=== PATIENT | female | born 1990 | race Caucasian/White ===

== ENCOUNTER 2018-05-25 15:50 | Emergency (ER) | payer OTHER ==
[~2018-05-25] VITALS: Ht 175.3 cm; Wt 70.3 kg
[2018-05-25 16:04] VITALS: BP 117/86
--- NOTE | 2018-05-25 16:24 | Emergency Room Report ---
History of Present Illness General Chief Complaint: Skin Rash/Abscess Source: Patient Present Illness HPI 27-year-old female presents to the emergency department complaining of itchy progressive rash times one week. Patient denies history of allergies. Denies pain. Pt. denies fevers, chills or swollen tender lymph nodes. Denies lesions/ rashes elsewhere on the body. Denies new medications or body washes or creams. Denies swelling of the lips, tongue , throat or airway. Denies wheezing, or shortness of breath. Denies recent travel, recent illness or ill contacts. denies blisters, oral lesions, or sloughing of the skin. 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 Allergies: Coded Allergies: SULFA (SULFONAMIDE ANTIBIOTICS) (Verified Allergy, Unknown, 05/25/18) Patient History Past Medical History: see triage record Past Surgical History: none Pertinent Family History: none Now: No Immunizations: UTD Reviewed Nursing Documentation: PMH: Agreed; PSxH: Agreed Nursing Documentation-PMH Past Medical History: No Stated History Review of Systems All Other Systems: negative except mentioned in HPI Physical Exam Vital Signs Date Time Temp Pulse Resp B/P (MAP) Pulse Ox O2 Delivery O2 Flow Rate FiO2 05/25/18 15:54 98.1 80 12 117/86 97 Room Air Sp02 EP Interpretation: reviewed, normal General Appearance: no apparent distress, alert, GCS 15, non-toxic Head: normocephalic, atraumatic, other - Rash on chin and anterior chest. Eyes: bilateral eye normal inspection, bilateral eye PERRL ENT: hearing grossly normal, no angioedema, normal voice, other - no oral lesions Neck: full range of motion, other - no stridor Respiratory: chest non-tender, lungs clear, normal breath sounds, no respiratory distress, no wheezing, speaking full sentences Cardiovascular #1: regular rate, rhythm Gastrointestinal: non tender, soft, other - Rash on trunk, small plaques, no blisters or vesicles. no specific pattern. Rectal: deferred Genitourinary: normal inspection Musculoskeletal: back normal, gait/station normal, normal range of motion, non- tender Neurologic: alert, oriented x3, responsive, motor strength/tone normal, sensory intact, speech normal, grossly normal Psychiatric: judgement/insight normal Skin: normal color, warm/dry, well hydrated, rash - Rash on trunk, small plaques, no blisters or vesicles. no specific pattern. Lymphatic: no adenopathy Medical Decision Making PA Attestation Dr. Rodrigez is my supervising Physician whom patient management has been discussed with. Diagnostic Impression: Primary Impression: Rash and other nonspecific skin eruption ER Course 27-year-old female presents to the emergency department complaining of itchy progressive rash times one week. Patient denies history of allergies. Denies pain. Pt. denies fevers, chills or swollen tender lymph nodes. Denies lesions/ rashes elsewhere on the body. Denies new medications or body washes or creams. Denies swelling of the lips, tongue , throat or airway. Denies wheezing, or shortness of breath. Denies recent travel, recent illness or ill contacts. denies blisters, oral lesions, or sloughing of the skin. 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 Ddx considered but are not limited to cellulitis, scabies, shingles, varicella, dermatitis, urticaria, eczema, tinea, viral exanthem, SJS Vital signs: are WNL, pt. is afebrile H&PE are most consistent with Urticaria. no evidence of blisters or oral lesions to suggest drug reaction like SJS. no evidence to suggest impending airway compromise or anaphylaxis. ORDERS: none required at this time, the diagnosis is clinical ED INTERVENTIONS: -Prednisone PO DISCHARGE: At this time pt. is stable for d/c to home. Will provide printed patient care instructions, and any necessary prescriptions. Care plan and follow up instructions have been discussed with the patient prior to discharge. Last Vital Signs Date Time Temp Pulse Resp B/P (MAP) Pulse Ox O2 Delivery O2 Flow Rate FiO2 05/25/18 15:54 98.1 80 12 117/86 97 Room Air Disposition: HOME, SELF-CARE Condition: Stable Scripts Prednisone* (PREDNISONE*) 20 Mg Tablet 40 MG ORAL DAILY for 5 Days, #10 TAB Prov: Dorinda Funez 05/25/18 Hydroxyzine HCl (Hydroxyzine HCl) 25 Mg Tablet 25 MG ORAL FOUR TIMES A DAY, #24 TAB Prov: Dorinda Funez 05/25/18 Departure Forms: Return to Work Return to Work Date: May 29, 2018 Work Restrictions: None Return to Full Activity: May 29, 2018 Patient Instructions: Hives, [id number], Rash Additional Instructions: Take medications as directed. Follow up with a Primary Care Provider in 3-5 days, even if your symptoms have resolved. --Please review list of primary care clinics, if you do not already have a primary care provider Return sooner to ED if new symptoms occur, or current symptoms become worse. Do not drink alcohol, drive, or operate heavy machinery while taking Hydroxyzine / Atarax as this may cause drowsiness. - Please note that this Emergency Department Report was dictated using [employer] inspector technology software, occasionally this can lead to erroneous entry secondary to interpretation by the dictation equipment. Dorinda Funez May 25, 2018 16:24
[2018-05-25] MEDS ORDERED: ATARAX25 MG ORAL (16:26)
[2018-05-25] MEDS ORDERED: PREDNISONE20 MG ORAL (16:26)
[2018-05-25 16:37] VITALS: BP 117/86
== END 2018-05-25 16:37 | disposition home or self-care (01) ==
LOC: EMR 16:20
DX: R21 Rash and other nonspecific skin eruption (principal); Z88.2 Allergy status to sulfonamides; Z87.891 Personal history of nicotine dependence
CPT/HCPCS: 99283; J7512

== ENCOUNTER 2018-09-08 15:16 | Emergency (ER) | payer OTHER ==
[~2018-09-08] VITALS: Ht 175.3 cm; Wt 72.1 kg
[~2018-09-08 15:16] MED LIST: ATARAX25 MG ORAL; PREDNISONE20 MG ORAL
--- NOTE | 2018-09-08 15:30 | NUR ---
ED Nurse Note: Pt has been having abdominal pain x3 days and blood in urine x2 times. Pt has hx of kidney stones and suspecting that she is experiencing the same symptom. Pain 8/10 romain. Aox4, VSS romain. Will cont to monitor.
--- NOTE | 2018-09-08 16:02 | Emergency Room Report ---
History of Present Illness General Chief Complaint: Abdominal Pain Source: Patient Present Illness HPI This is a 27-year-old female with a history of kidney stones, complains of 2 days of hematuria. She also complains of lower suprapubic pain. No radiation. She denies any nausea or vomiting. She denies any dysuria. No exacerbating or alleviating factor. States it feels like her kidney stones in the past before. Allergies: Coded Allergies: SULFA (SULFONAMIDE ANTIBIOTICS) (Verified Allergy, Unknown, 05/25/18) Patient History Past Medical History: other - Kidney stones Past Surgical History: none Pertinent Family History: none Last Menstrual Period: 08/2018 Now: No Nursing Documentation-PMH Past Medical History: No History, Except For Review of Systems All Other Systems: negative except mentioned in HPI Physical Exam Vital Signs Date Time Temp Pulse Resp B/P (MAP) Pulse Ox O2 Delivery O2 Flow Rate FiO2 09/08/18 15:27 98.4 94 18 107/73 97 Room Air General Appearance: well appearing, no apparent distress Head: normocephalic, atraumatic ENT: hearing grossly normal, normal voice Neck: full range of motion, supple Respiratory: no respiratory distress, speaking full sentences Gastrointestinal: normal inspection, normal bowel sounds, soft Genitourinary: no CVA tenderness, bladder normal, no vertebral tenderness Neurologic: alert, normal gait Psychiatric: mood/affect normal Medical Decision Making Reaction to Intervention: Improved Diagnostic Impression: Primary Impression: Urinary tract infection ER Course Patient presents significant complexity of risk requiring multiple bedside evaluations. Particularly very concerned about acute pyelonephritis, sepsis, obstructive uropathy, renal failure, pelvic inflammatory disease, urolithiasis. Blood work was reviewed. She was given an emergent dose of IV Rocephin. Ultrasound was reviewed as well. She does have a nonobstructing right kidney stone. There is no hydronephrosis. The patient is alert and nontoxic- appearing. Her pain is controlled with nonnarcotic medications. She will be discharged home with antibiotics and pain medication to follow-up with her primary care physician as an outpatient. Laboratory Tests Test 09/08/18 15:33 09/08/18 16:26 Urine Color Yellow Urine Appearance Slightly cloudy Urine pH 7 (4.5-8.0) Urine Specific Sims 1.010 (1.005-1.035) Urine Protein 2+ (NEGATIVE) H Urine Glucose (UA) Negative (NEGATIVE) Urine Ketones 1+ (NEGATIVE) H Urine Blood 1+ (NEGATIVE) H Urine Nitrite Negative (NEGATIVE) Urine Bilirubin Negative (NEGATIVE) Urine Urobilinogen Normal MG/DL (0.0-1.0) Urine Leukocyte Esterase 2+ (NEGATIVE) H Urine RBC 5-10 /HPF (0 - 2) H Urine WBC 40-60 /HPF (0 - 2) H Urine Squamous Epithelial Cells Moderate /LPF (NONE/OCC) H Urine Bacteria Moderate /HPF (NONE) H Urine Mucus Few /LPF (NONE/OCC) H White Blood Count 6.4 K/UL (4.8-10.8) Red Blood Count 4.24 M/UL (4.20-5.40) Hemoglobin 11.7 G/DL (12.0-16.0) L Hematocrit 36.2 % (37.0-47.0) L Mean Corpuscular Volume 85 FL (80-99) Mean Corpuscular Hemoglobin 27.5 PG (27.0-31.0) Mean Corpuscular Hemoglobin Concent 32.2 G/DL (32.0-36.0) Red Cell Distribution Width 12.3 % (11.6-14.8) Platelet Count 250 K/UL (150-450) Mean Platelet Volume 7.4 FL (6.5-10.1) Neutrophils (%) (Auto) 63.9 % (45.0-75.0) Lymphocytes (%) (Auto) 28.1 % (20.0-45.0) Monocytes (%) (Auto) 6.0 % (1.0-10.0) Eosinophils (%) (Auto) 0.7 % (0.0-3.0) Basophils (%) (Auto) 1.3 % (0.0-2.0) Sodium Level 139 MMOL/L (136-145) Potassium Level 4.3 MMOL/L (3.5-5.1) Chloride Level 105 MMOL/L (98-107) Carbon Dioxide Level 24 MMOL/L (21-32) Anion Gap 10 mmol/L (5-15) Blood Urea Nitrogen 17 mg/dL (7-18) Creatinine 1.1 MG/DL (0.55-1.30) Estimate Glomerular Filtration Rate 59.1 mL/min (>60) Glucose Level 88 MG/DL (74-106) Calcium Level 9.8 MG/DL (8.5-10.1) Human Chorionic Gonadotropin, Quant < 1 mIU/mL (1-6) L Last Vital Signs Date Time Temp Pulse Resp B/P (MAP) Pulse Ox O2 Delivery O2 Flow Rate FiO2 09/08/18 15:31 94 18 Room Air 09/08/18 15:27 98.4 107/73 97 Status: improved Disposition: HOME, SELF-CARE Scripts Ciprofloxacin Hcl* (CIPROFLOXACIN HCL*) 500 Mg Tablet 500 MG ORAL Q12H, #14 TAB 0 Refills Prov: ZURI RAY 09/08/18 Acetaminophen* (ACETAMINOPHEN EXTRA STRENGTH*) 500 Mg Tablet 500 MG ORAL Q8H PRN for Fever/Headache/Mild Pain, #30 TAB Prov: ZURI RAY 09/08/18 Patient Instructions: Urinary Tract Infection, [id number] ZURI RAY Sep 08, 2018 16:02
[2018-09-08 16:41] LABS: APPEARANCE,URINE SLIGHTLY CLOUDY; BILIRUBIN, URINE NEGATIVE (NEGATIVE); COLOR,URINE YELLOW; GLUCOSE, URINE (UA) NEGATIVE (NEGATIVE); KETONES,URINE 1+ (NEGATIVE); LEUKOCYTE ESTERASE ,URINE 2+ (NEGATIVE); NITRITE,URINE NEGATIVE (NEGATIVE); PH,URINE 7 (4.5-8.0); PROTEIN,URINE 2+ (NEGATIVE); UROBILINOGEN,URINE NORMAL MG/DL (0.0-1.0)
[2018-09-08 16:44] LABS: BASOPHILS % (AUTO) 1.3 % (0.0-2.0); EOSINOPHILS % (AUTO) 0.7 % (0.0-3.0); HEMATOCRIT 36.2 % (37.0-47.0); HEMOGLOBIN 11.7 G/DL (12.0-16.0); LYMPHOCYTES % (AUTO) 28.1 % (20.0-45.0); MEAN CORPUSCULAR VOLUME 85 FL (80-99); NEUTROPHILS % (AUTO) 63.9 % (45.0-75.0); PLATELET COUNT 250 K/UL (150-450); RED BLOOD COUNT 4.24 M/UL (4.20-5.40); RED CELL DISTRIBUTION WIDTH 12.3 % (11.6-14.8); WHITE BLOOD COUNT 6.4 K/UL (4.8-10.8)
--- NOTE | 2018-09-08 16:48 | NUR ---
ED Nurse Note: Pt askibg for pain medication. Dr Case notified and waiting for orders.
[2018-09-08 16:57] LABS: ANION GAP 10 mmol/L (5-15); BLOOD UREA NITROGEN 17 mg/dL (7-18); CALCIUM 9.8 MG/DL (8.5-10.1); CARBON DIOXIDE 24 MMOL/L (21-32); CHLORIDE 105 MMOL/L (98-107); CREATININE 1.1 MG/DL (0.55-1.30); POTASSIUM 4.3 MMOL/L (3.5-5.1); SODIUM 139 MMOL/L (136-145)
[2018-09-08] MEDS ORDERED: cefTRIAXone 1 GM in NS 55 ML IVPB ONE (17:45)
--- NOTE | 2018-09-08 18:00 | NUR ---
ED Nurse Note: Pt taken to US.
[2018-09-08] MEDS ORDERED: ACETAMINOPHEN500 M3 ORAL (18:32)
[2018-09-08] MEDS ORDERED: CIPROFLOXACIN500 M2 ORAL (18:32)
[2018-09-08 18:44] VITALS: BP_SYST 107; BP_SYST 112; BP_DIAS 73; BP_DIAS 74
--- NOTE | 2018-09-08 18:44 | NUR ---
ER DISCHARGE NOTE: Patient is cleared to be discharged per ERMD, pt is aox4, on room air, with stable vital signs. pt was given dc and prescription instructions, pt was able to verbalize understanding, pt id band and iv site removed without complications. pt is able to ambulate with steady gait. pt took all belongings.
--- NOTE | 2018-09-09 10:09 | Diagnostic Imaging Report ---
Indication: Back pain Technique: Grayscale and duplex images of the kidneys, retroperitoneum, and bladder were obtained. Comparison: none Findings: Right kidney measures 10.4 cm in length. Left kidney measures 10.3 cm in length. Both kidneys demonstrate normal echogenicity. No hydronephrosis. Centimeters left kidney demonstrates a 7 mm upper pole echogenic focus with questionable shadowing. Normal inferior vena cava. Bladder is normal, demonstrates bilateral ureteral jets. Impression: Possible nonobstructive left upper pole intrarenal calculus Negative for hydronephrosis. This agrees with the preliminary interpretation provided overnight by [facility].
== END 2018-09-08 18:44 | disposition home or self-care (01) ==
LOC: EMR 15:56
DX: N39.0 Urinary tract infection, site not specified (principal); Z88.2 Allergy status to sulfonamides; Z87.442 Personal history of urinary calculi
CPT/HCPCS: 36415; 76770; 80048; 81003; 84702; 85025; 87086; 87181; 96360; 96361; 99284

== ENCOUNTER 2019-03-19 09:15 | Emergency (ER) | payer OTHER ==
[~2019-03-19] VITALS: Ht 175.3 cm; Wt 68.0 kg
[~2019-03-19 09:15] MED LIST changes: +ACETAMINOPHEN500 M3 ORAL; +CIPROFLOXACIN500 M2 ORAL
--- NOTE | 2019-03-19 09:21 | NUR ---
ED Nurse Note: pt not found in waiting area.
[2019-03-19] MEDS ORDERED: PROZAC40 MG ORAL (09:30)
[2019-03-19] MEDS ORDERED: VISTARIL50 MG ORAL (09:30)
[2019-03-19] MEDS ORDERED: SEROQUEL50 MG ORAL (09:30)
[2019-03-19 09:35] VITALS: BP 128/77
--- NOTE | 2019-03-19 09:52 | NUR ---
ED Nurse Note: per ERMD pt is ok to eat and drink. sandwich and juice provided per request.
--- NOTE | 2019-03-19 09:56 | Emergency Room Report ---
History of Present Illness General Chief Complaint: Pain Source: Patient, Medical Record Present Illness HPI The patient states that for the past month she has noted nodules in her right arm pit. She states they are very large and very tender to the touch. She has no other nodules or masses that she has noted. She states she has been achy but otherwise denies recent illness. She denies fever or chills. She denies nausea or vomiting. She denies chest pain or shortness of breath. She states she was concerned possibly about HIV. She is residing in a sober living and states that she is at risk and has not been tested recently. Allergies: Coded Allergies: SULFA (SULFONAMIDE ANTIBIOTICS) (Verified Allergy, Unknown, 05/25/18) Patient History Past Medical History: see triage record, other - Scoliosis Last Menstrual Period: 02/26/19 Reviewed Nursing Documentation: PMH: Agreed; PSxH: Agreed Nursing Documentation-PMH Past Medical History: No History, Except For Review of Systems All Other Systems: negative except mentioned in HPI Physical Exam Vital Signs Date Time Temp Pulse Resp B/P (MAP) Pulse Ox O2 Delivery O2 Flow Rate FiO2 03/19/19 09:26 98.2 88 16 129/85 (100) 98 Room Air Sp02 EP Interpretation: reviewed, normal General Appearance: no apparent distress, alert, GCS 15, non-toxic Head: normocephalic, atraumatic Eyes: bilateral eye normal inspection, bilateral eye PERRL ENT: hearing grossly normal, normal pharynx, no angioedema, normal voice Neck: full range of motion, supple/symm/no masses Respiratory: chest non-tender, lungs clear, normal breath sounds, no respiratory distress, no retraction, no accessory muscle use, speaking full sentences Cardiovascular #1: regular rate, rhythm, no edema Rectal: deferred Musculoskeletal: back normal, gait/station normal, normal range of motion, non- tender Neurologic: alert, oriented x3, responsive, motor strength/tone normal, sensory intact, speech normal Psychiatric: judgement/insight normal, memory normal, mood/affect normal, no suicidal/homicidal ideation Skin: other - R. axilla with 3 large, tender nodules that are in the SQ tissue. Mild erythema. Non-fluctuant. Medical Decision Making Diagnostic Impression: Primary Impression: Hidradenitis suppurativa of right axilla Additional Impression: Axillary cysts ER Course This patient underwent ultrasound of her right axilla. She has several cysts that are interconnected. There is very little fluid internally. This had been going on for 3 weeks which is likely why they are loculated and without fluctuance. There is some mild surrounding erythema, so I will place the patient on a course of antibiotics. I educated the patient that likely she would need these excised by a plastic surgeon or environmental engineering assistant. The patient requested attempt at some drainage. The Shelly STARK used an 18- gauge needle to attempt aspiration. However there was minimal return. Patient was instructed that likely she would need further evaluation and possible surgical excision by a plastic surgeon. Laboratory Tests Test 03/19/19 09:45 03/19/19 09:55 Urine HCG, Qualitative Negative (NEGATIVE) HIV (1&2) Antibody Rapid Negative (NEGATIVE) CT/MRI/US Diagnostic Results CT/MRI/US Diagnostic Results : Imaging Test Ordered: US R. Axilla Impression IMPRESSION: Findings demonstrates a heterogeneous somewhat indurated mixed density structure in the immediate subcutaneous tissues of the right axilla which may represent phlegmonous changes in the setting of hidradenitis suppurativa with some adjacent prominent right axillary lymph nodes. Additional etiologies however not excluded. No well defined fluid collection suggest organized abscess. Correlation with clinical findings and follow-up after treatment is recommended to ensure resolution. Consider dermatology referral. Last Vital Signs Date Time Temp Pulse Resp B/P (MAP) Pulse Ox O2 Delivery O2 Flow Rate FiO2 03/19/19 09:35 99.4 78 19 128/77 100 Room Air Status: improved Disposition: HOME, SELF-CARE Condition: Improved Scripts Doxycycline Monohydrate* (DOXYCYCLINE MONOHYDRATE*) 100 Mg Capsule 100 MG ORAL Q12H, #14 CAP 0 Refills Prov: Yuli Merritt DO 03/19/19 Referrals: NON PHYSICIAN (PCP) Yuli Merritt DO Mar 19, 2019 09:56
--- NOTE | 2019-03-19 10:02 | NUR ---
ED Nurse Note: US initiated at bedside.
--- NOTE | 2019-03-19 10:45 | NUR ---
ED Nurse Note: US done at bedside.
--- NOTE | 2019-03-19 11:01 | Diagnostic Imaging Report ---
Indication: Right axillary palpable mass for 3 to 4 weeks Technique: Focused grayscale and color Doppler imaging performed to the region of interest of the right axilla. Comparison images also obtained through the left axilla Comparison: None Findings: Focus scanning to the region of interest of the right axillary demonstrate a compressible hypoechoic area just deep to the skin surface which measures approximately 1 cm. Adjacent to this there is another area which measures approximately 1.4 cm. These may represent phlegmonous changes in the setting of possible hidradenitis suppurativa. Additional etiologies however cannot be excluded. No well-defined/drainable fluid collection is identified to suggest organized abscess. Some prominent right axillary lymph nodes are noted in this region as well. Comparison images of the left axilla demonstrate some subcentimeter hypoechoic areas as well. There are also some small lymph nodes. IMPRESSION: Findings demonstrates a heterogeneous somewhat indurated mixed density structure in the immediate subcutaneous tissues of the right axilla which may represent phlegmonous changes in the setting of hidradenitis suppurativa with some adjacent prominent right axillary lymph nodes. Additional etiologies however not excluded. No well defined fluid collection suggest organized abscess. Correlation with clinical findings and follow-up after treatment is recommended to ensure resolution. Consider dermatology referral.
--- NOTE | 2019-03-19 11:11 | NUR ---
ED Nurse Note: Patient in bed 3 complimng of diaz 8 in under arm area upper chest. Also states she had some abdominal pain in the center of the abdomen. Requesting food on arrival. IV access to the right arm - labs drawn. USS ordered. Seen by Doctor - patient able to eat - sandwich and juice provided. Monitor attached and vitals recorded. Urine sample requested and obtained.
--- NOTE | 2019-03-19 11:30 | NUR ---
ED Nurse Note: ERMD at bedside talking to pt regarding test resutls.
[2019-03-19 11:43] VITALS: BP 119/71
[2019-03-19] MEDS ORDERED: DOXYCYCLINE MO100 MG ORAL (12:25)
[2019-03-19] MEDS ORDERED: Lidocaine 1% MPF 10mg/ml 5ml INJ ONE (12:30)
--- NOTE | 2019-03-19 12:40 | NUR ---
ED Nurse Note: I&D at bedside.
--- NOTE | 2019-03-19 13:15 | NUR ---
ER DISCHARGE NOTE: Patient is cleared to be discharged per ERMD, pt is aox4, on room air, with stable vital signs. pt was given dc instructions, pt was able to verbalize understanding, pt id band removed without complications. No IV site insitu at time of discharge - previously removed, pt is able to ambulate with steady gait. pt took all belongings. Patient will follow up as per discharge advice instructions.
--- NOTE | 2019-03-19 13:24 | NUR ---
ED Nurse Note: Patient discharged at 13.15. Betadine dressing applied to underarm following I&D performed. ID band removed
[2019-03-19 13:47] VITALS: BP 121/74
== END 2019-03-19 13:24 | disposition home or self-care (01) ==
LOC: EMR 09:43
DX: L73.2 Hidradenitis suppurativa (principal); L72.9 Follicular cyst of the skin and subcutaneous tissue, unspecified; Z88.2 Allergy status to sulfonamides
CPT/HCPCS: 10060; 76881; 81025; 86703; Z7502; 99284

== ENCOUNTER 2019-06-22 20:08 | Emergency (ER) | payer BC, OTHER ==
[~2019-06-22] VITALS: Ht 175.3 cm; Wt 65.8 kg
[~2019-06-22 20:08] MED LIST changes: +DOXYCYCLINE MO100 MG ORAL; +PROZAC40 MG ORAL; +SEROQUEL50 MG ORAL; +VISTARIL50 MG ORAL
[2019-06-22 20:32] VITALS: BP 133/85
--- NOTE | 2019-06-22 20:36 | NUR ---
ED Nurse Note: Patient walked into ED from friend's house d/t anxiety/panic attack. Patient stated her the same time last year and felt that this triggered her. Patient headache 02/08. Patient aao x 4 and ambulatory. Denies SI/HI. Patient given blanket as requested. no acute distress at this time.
--- NOTE | 2019-06-22 20:47 | NUR ---
ED Nurse Note: ERMD at bedside
--- NOTE | 2019-06-22 21:03 | NUR ---
ED Nurse Note: Urine sample obtained and sent to lab
[2019-06-22 21:24] VITALS: BP 128/92
--- NOTE | 2019-06-22 21:24 | NUR ---
ER DISCHARGE NOTE: Patient cleared for DC per ERMD. Patient given discharge instuctions, verbalized understanding. Patient aao x 4 and ambulatory. Patient took all belongings. Patient stable upon discharge.
--- NOTE | 2019-06-23 13:55 | Emergency Room Report ---
History of Present Illness General Chief Complaint: Behavioral Complaint Source: Patient Present Illness HPI Patient is a 28-year-old female presents after increased anxiety. She reports having prior history of anxiety. She states that she had previously been taking benzodiazepines. She had recently been switched to prazosin. Patient had not been having any chest discomfort. She reports having increased anxiety due to 's approximate 1 year ago. She denies any suicidal thoughts. Denies any auditory hallucinations. She reports being a smoker. She denies any drug use. She reports having minimal caffeine use. Denies any history of hyperthyroidism. Allergies: Coded Allergies: SULFA (SULFONAMIDE ANTIBIOTICS) (Verified Allergy, Unknown, 05/25/18) Patient History Past Medical History: see triage record Last Menstrual Period: 06/01/19 Reviewed Nursing Documentation: PMH: Agreed; PSxH: Agreed Review of Systems All Other Systems: negative except mentioned in HPI Physical Exam Vital Signs Date Time Temp Pulse Resp B/P (MAP) Pulse Ox O2 Delivery O2 Flow Rate FiO2 06/22/19 20:16 98.8 112 22 135/79 (97) 98 Room Air General Appearance: well appearing, no apparent distress, alert, GCS 15 Head: normocephalic, atraumatic ENT: hearing grossly normal, normal voice Neck: full range of motion, supple Respiratory: no respiratory distress, speaking full sentences Gastrointestinal: normal inspection Musculoskeletal: no calf tenderness Neurologic: alert, motor strength/tone normal, kiln fireman III-XII nml as tested, normal gait Psychiatric: normal inspection, judgement/insight normal, memory normal, mood/ affect normal, no suicidal/homicidal ideation, no delusions Skin: no rash Medical Decision Making Diagnostic Impression: Primary Impression: Anxiety ER Course Patient presented for anxiety. The differential diagnosis included was not limited to arrhythmia, thyroid storm, sepsis, anemia, myocardial infarction, alcohol withdrawal, stimulant abuse, caffeine overdose among others. Patient has a benign exam and does not appear to require any imaging or laboratory testing at this time. Patient has longstanding history of anxiety. Cures report reviewed showed some evidence of previous benzodiazepine prescriptions. Patient states that she is currently being followed by psychiatry. She does not appear to require any inpatient psychiatric evaluation and does not appear to be holdable. Patient was given anxiolytic medication in the emergency department. Patient was advised to follow-up with her psychiatrist for prescription of benzodiazepines if they feel this is indicated. The patient is advised to follow up with primary care doctor in 1-2 days. Patient is advised to return if any worsening condition or if any changes in status that are concerning. This report is dictated with [employer] balloon seller software which may occasionally lead to discrepancies related to use of this software. Labs Test 06/22/19 21:00 Urine HCG, Qualitative Negative (NEGATIVE) Last Vital Signs Date Time Temp Pulse Resp B/P (MAP) Pulse Ox O2 Delivery O2 Flow Rate FiO2 06/22/19 21:24 98.2 112 20 128/92 96 Room Air Status: improved Disposition: HOME, SELF-CARE Condition: Improved Referrals: NOT CHOSEN IPA/,REFERRING (PCP) Patient Instructions: Panic Attacks, [id number] Additional Instructions: Follow up with your psychiatrist for further evaluation and treatment of anxiety. Return if any concerns. Eron Warner MD Jun 23, 2019 13:55
== END 2019-06-22 21:24 | disposition home or self-care (01) ==
LOC: EMR 20:40
DX: F41.9 Anxiety disorder, unspecified (principal); Z88.2 Allergy status to sulfonamides
CPT/HCPCS: 81025; 99283

== ENCOUNTER 2019-08-01 14:59 | Emergency (ER) | payer BC, OTHER ==
[~2019-08-01] VITALS: Ht 175.3 cm; Wt 63.5 kg
[~2019-08-01 14:59] MED LIST changes: +AMOXICILLIN500 MG ORAL; +TYLENOL EXTRA500 MG ORAL
[2019-08-01 15:04] VITALS: BP 108/72
--- NOTE | 2019-08-01 15:30 | NUR ---
ED Nurse Note: Patient presents to ER due to feeling nauseous, migraine. No vomiting noted. Ptiaent has had tooth infection for 2 months and awaiting for oral surgeon referral from insurance. No diaphoresis noted. Skin not hot to touch. Patient awake, alert, oriented x 4. Regular, unlabored breathing noted. Patient ambulated to the room with steady gait. Placed patient in gown and on monitor car operator.
[2019-08-01] MEDS ORDERED: AUGMENTIN 875-1 EAC1 ORAL (15:33)
[2019-08-01] MEDS ORDERED: ACETAMINOPHEN-1 EAC1 ORAL (15:35)
--- NOTE | 2019-08-01 15:45 | NUR ---
ED Nurse Note: Patient found sleeping in bed on left lateral position. No N/V noted. No facial grimacing or guarding noted.
[2019-08-01 16:01] VITALS: BP 104/60
--- NOTE | 2019-08-01 16:06 | NUR ---
ED Nurse Note: Patient is being seen by Dr. Warner and discharged from medical care. D/C instruction and prescription given to patient. All questions were answered. Patient ambulating out with steady gait with all her belongings.
--- NOTE | 2019-08-01 22:24 | Emergency Room Report ---
History of Present Illness General Chief Complaint: Vomiting Source: Patient Present Illness HPI Patient is a 28-year-old female presents after increased nausea and right-sided facial pain. She reports having a recent been using antibiotics for her dental infection. She states she missed some doses and had been noted to have increased discomfort to the right upper molar. She states that she had recently seen a dentist and had been told that she had an apical abscess. Denies any recent procedures. Allergies: Coded Allergies: SULFA (SULFONAMIDE ANTIBIOTICS) (Verified Allergy, Unknown, 05/25/18) Patient History Past Medical History: see triage record Last Menstrual Period: 07/16/19 Now: No Reviewed Nursing Documentation: PMH: Agreed; PSxH: Agreed Nursing Documentation-PMH Past Medical History: No History, Except For Hx Cardiac Problems: No Hx Hypertension: No - ORTHOSTATIC HYPOTENSION. Hx Pacemaker: No Hx Asthma: No Hx COPD: No Hx Diabetes: No Hx Cancer: No Hx Gastrointestinal Problems: No Hx Dialysis: No Hx Neurological Problems: No - SCOLIOSOS Hx Cerebrovascular Accident: No Hx Seizures: No Review of Systems All Other Systems: negative except mentioned in HPI Physical Exam Vital Signs Date Time Temp Pulse Resp B/P (MAP) Pulse Ox O2 Delivery O2 Flow Rate FiO2 08/01/19 15:04 98.1 81 16 108/72 (84) 97 Room Air General Appearance: well appearing, no apparent distress, alert, GCS 15, non- toxic Head: normocephalic, atraumatic ENT: hearing grossly normal, normal voice, other - Some swelling to the right upper posterior molar gingiva no trismus or discharge noted. Neck: full range of motion, supple Respiratory: no respiratory distress, speaking full sentences Musculoskeletal: no calf tenderness Neurologic: normal gait Psychiatric: mood/affect normal Skin: no rash Medical Decision Making Diagnostic Impression: Primary Impression: Dental infection ER Course Patient presented for dental pain. Differential diagnosis included but was not limited to trigeminal neuralgia, dental abscess, dry socket, osteomyelitis, nerve injury. The patient was noted to have a benign exam. Given prescription for antibiotics as well as pain medications. The patient is advised to follow up with dentist or oral surgeon in 1-2 days. Patient is advised to return if any worsening condition or if any changes in status that are concerning. Last Vital Signs Date Time Temp Pulse Resp B/P (MAP) Pulse Ox O2 Delivery O2 Flow Rate FiO2 08/01/19 16:01 98.1 75 16 104/60 100 Room Air Status: improved Disposition: HOME, SELF-CARE Condition: Stable Scripts Acetaminophen With Codeine (T#3) (TYLENOL #3 TAB*) Y Tab 1 TAB ORAL Q8H PRN for For Pain, #10 TAB Prov: Eron Warner MD 08/01/19 Amoxicillin/Potassium Clav 875-125* (AUGMENTIN 875-125 TABLET*) 1 Each Tablet 1 TAB ORAL TWICE A DAY, #14 TAB Prov: Eron Warner MD 08/01/19 Referrals: NOT CHOSEN IPA/,REFERRING (PCP) Patient Instructions: Dental Pain Additional Instructions: Follow up with an oral surgeon. Return for fever, bloody diarrhea or any other concerns. Eron Warner MD Aug 01, 2019 22:24
== END 2019-08-01 16:06 | disposition home or self-care (01) ==
LOC: EMR 16:03
DX: K04.7 Periapical abscess without sinus (principal); M41.9 Scoliosis, unspecified; Z88.2 Allergy status to sulfonamides
CPT/HCPCS: 99282

== ENCOUNTER 2020-04-20 08:35 | Emergency (ER) | payer BC, OTHER ==
[~2020-04-20] VITALS: Ht 175.3 cm; Wt 70.3 kg
[~2020-04-20 08:35] MED LIST changes: +ACETAMINOPHEN-1 EAC1 ORAL; +AUGMENTIN 875-1 EAC1 ORAL
[2020-04-20 08:51] VITALS: BP 116/56
--- NOTE | 2020-04-20 08:59 | Emergency Room Report ---
History of Present Illness General Chief Complaint: Female Urogenital Problems Source: Patient Present Illness HPI Disclaimer: Please note that this report is being documented using DRAGON technology. This can lead to erroneous entry secondary to incorrect interpretation by the dictating instrument. HPI: 29-year-old female presents for evaluation of dysuria. She states she has a history of multidrug-resistant urinary tract infections. She was recently hospitalized [place] several weeks ago and discharged with metronidazole which she states resolved the infection but now believes it is returned. She reports dysuria without hematuria. Denies flank pain, fever, abdominal pain, vomiting or diarrhea. Reports intermittent nausea. She is scheduled to see urology on 04/30. Denies other symptoms at this time. LMP this week. PMH: UTI, former alcohol abuse PSH: Reviewed Allergies: Sulfa medications Social Hx: Former alcohol abuse, currently sober Allergies: Coded Allergies: SULFA (SULFONAMIDE ANTIBIOTICS) (Verified Allergy, Unknown, 05/25/18) COVID-19 Screening Contact w/high risk pt: No Experienced COVID-19 symptoms?: No COVID-19 Testing performed EQUINE DENTIST: No Patient History Last Menstrual Period: 04/15/2020 Now: No Nursing Documentation-PMH Hx Cardiac Problems: No Hx Hypertension: No - ORTHOSTATIC HYPOTENSION. Hx Pacemaker: No Hx Asthma: No Hx COPD: No Hx Diabetes: No Hx Cancer: No Hx Gastrointestinal Problems: No Hx Dialysis: No Hx Neurological Problems: No - SCOLIOSOS Hx Cerebrovascular Accident: No Hx Seizures: No Review of Systems All Other Systems: negative except mentioned in HPI Physical Exam Vital Signs Date Time Temp Pulse Resp B/P (MAP) Pulse Ox O2 Delivery O2 Flow Rate FiO2 04/20/20 08:44 98.2 85 20 116/56 (76) 98 Room Air General: Awake and alert, no acute distress HEENT: NC/AT. EOMI. Resp: Normal work of breathing Abdomen: Soft, nontender, nondistended. Skin: Intact. No abrasions, laceration or rash over the exposed skin MSK: Normal tone and bulk. Moving all extremities. No obvious deformity. Neuro: Awake and alert. Mentating appropriately Medical Decision Making Diagnostic Impression: Primary Impression: UTI (urinary tract infection) ER Course 29-year-old female presents for evaluation of dysuria. Differential includes but is not limited to UTI, pyelonephritis, bladder spasm among others. hCG retur wade negative. Leukocyte esterase and WBC are elevated. Few bacteria seen on urinalysis. Will send for culture though will start patient on Macrobid for treatment of urinary tract infection. No evidence of pyelonephritis. Afebrile and well-appearing otherwise. She has an appointment to follow-up with her urologist next week. Instructed patient she will be contacted should her antibiotics need to be changed based on sensitivity studies. She understands and agrees with this treatment plan is stable for outpatient follow-up. Discussed reasons to return to the ER. Laboratory Tests Test 04/20/20 08:53 Urine Color Yellow Urine Appearance Slightly cloudy Urine pH 5 (4.5-8.0) Urine Specific [place] 1.020 (1.005-1.035) Urine Protein 3+ (NEGATIVE) H Urine Glucose (UA) Negative (NEGATIVE) Urine Ketones 1+ (NEGATIVE) H Urine Blood 4+ (NEGATIVE) H Urine Nitrite Negative (NEGATIVE) Urine Bilirubin Negative (NEGATIVE) Urine Urobilinogen Normal MG/DL (0.0-1.0) Urine Leukocyte Esterase 3+ (NEGATIVE) H Urine RBC 10-15 /HPF (0 - 2) H Urine WBC Tntc /HPF (0 - 2) H Urine Squamous Epithelial Cells Few /LPF (NONE/OCC) Urine Bacteria Few /HPF (NONE) Urine HCG, Qualitative Negative (NEGATIVE) Last Vital Signs Date Time Temp Pulse Resp B/P (MAP) Pulse Ox O2 Delivery O2 Flow Rate FiO2 04/20/20 08:51 98.2 69 20 116/56 98 Room Air Disposition: HOME, SELF-CARE Condition: Stable Scripts Nitrofurantoin Monohyd/M-Cryst* (MACROBID 100 MG*) 100 Mg Capsule 100 MG ORAL EVERY 12 HOURS for 7 Days, #14 CAP Prov: Alek Maxwell MD 04/20/20 Alek Maxwell MD Apr 20, 2020 08:58
[2020-04-20 09:38] LABS: APPEARANCE,URINE SLIGHTLY CLOUDY; BILIRUBIN, URINE NEGATIVE (NEGATIVE); GLUCOSE, URINE (UA) NEGATIVE (NEGATIVE); KETONES,URINE 1+ (NEGATIVE); LEUKOCYTE ESTERASE ,URINE 3+ (NEGATIVE); NITRITE,URINE NEGATIVE (NEGATIVE); PH,URINE 5 (4.5-8.0); PROTEIN,URINE 3+ (NEGATIVE); UROBILINOGEN,URINE NORMAL MG/DL (0.0-1.0)
[2020-04-20 09:46] LABS: COLOR,URINE YELLOW
[2020-04-20 09:54] VITALS: BP 122/63
[2020-04-20] MEDS ORDERED: NITROFURANTOIN100 M2 ORAL (09:57)
== END 2020-04-20 09:52 | disposition home or self-care (01) ==
LOC: EMR 09:01
DX: N39.0 Urinary tract infection, site not specified (principal); Z88.2 Allergy status to sulfonamides; F10.21 Alcohol dependence, in remission; R11.0 Nausea; M41.9 Scoliosis, unspecified
CPT/HCPCS: 81003; 81025; 87086; Z7502; 99282

== ENCOUNTER 2020-05-01 20:21 | Emergency (ER) | payer OTHER ==
[~2020-05-01] VITALS: Ht 175.3 cm; Wt 70.3 kg
[~2020-05-01 20:21] MED LIST changes: +NITROFURANTOIN100 M2 ORAL
[2020-05-01 20:30] VITALS: BP 99/62
--- NOTE | 2020-05-01 20:30 | NUR ---
ED Nurse Note: Pt ambulated to ED from home c/o burning with urination today. Pt finished a round of antibiotics 2 days ago without relief. Pt denies fever at home, VSS. Pt is A&OX4. ERMD at bedside
[2020-05-01 21:04] LABS: APPEARANCE,URINE SLIGHTLY CLOUDY; BILIRUBIN, URINE NEGATIVE (NEGATIVE); COLOR,URINE PALE YELLOW; GLUCOSE, URINE (UA) NEGATIVE (NEGATIVE); KETONES,URINE NEGATIVE (NEGATIVE); LEUKOCYTE ESTERASE ,URINE 2+ (NEGATIVE); NITRITE,URINE NEGATIVE (NEGATIVE); PH,URINE 6 (4.5-8.0); PROTEIN,URINE 1+ (NEGATIVE); UROBILINOGEN,URINE NORMAL MG/DL (0.0-1.0)
--- NOTE | 2020-05-01 21:19 | Emergency Room Report ---
History of Present Illness General Chief Complaint: Female Urogenital Problems Source: Patient Present Illness HPI 29-year-old female here with dysuria and mild suprapubic tenderness for several days. Patient says that she frequently gets urinary tract infections. Says that she has felt some mild generalized malaise but has been afebrile. Denies fevers, chills, chest pain, palpitation, shortness of breath, back pain, abdominal pain, nausea, vomiting, diarrhea. Has had increased urinary frequency as well. Patient says that she was last on antibiotics several weeks ago for urinary tract infection. Says that she has been on Keflex multiple times as well as ciprofloxacin. Says that she also was on Flagyl and says that each of these medications will improve her symptoms but then they come back several days after stopping the medication. Allergies: Coded Allergies: SULFA (SULFONAMIDE ANTIBIOTICS) (Verified Allergy, Unknown, 05/25/18) COVID-19 Screening Contact w/high risk pt: No Experienced COVID-19 symptoms?: Yes COVID-19 Testing performed SENIOR COMMISSIONS ANALYST: Yes COVID-19 Screening: Negative COVID-19 COVID-19 Testing Source: INTERNAL CORROSION SPECIALIST 03/2020 Patient History Last Menstrual Period: 04/20/2020 Now: No : 0 Para: 0 Nursing Documentation-[facility] Past Medical History: No History, Except For Hx Hypertension: No - ORTHOSTATIC HYPOTENSION. Hx Pacemaker: No Hx Asthma: No Hx COPD: No Hx Diabetes: No Hx Dialysis: No Hx Cerebrovascular Accident: No Hx Seizures: Yes Review of Systems All Other Systems: negative except mentioned in HPI Physical Exam Vital Signs Date Time Temp Pulse Resp B/P (MAP) Pulse Ox O2 Delivery O2 Flow Rate FiO2 05/01/20 20:23 98.1 21 22 99/62 (74) 96 Room Air Sp02 EP Interpretation: reviewed, normal General Appearance: no apparent distress, alert, non-toxic Head: normocephalic, atraumatic Eyes: bilateral eye normal inspection, bilateral eye PERRL ENT: hearing grossly normal, normal pharynx, no angioedema, normal voice Neck: full range of motion, supple/symm/no masses Respiratory: chest non-tender, lungs clear, normal breath sounds, speaking full sentences Cardiovascular #1: regular rate, rhythm, no edema Cardiovascular #2: 2+ carotid (R), 2+ carotid (L), 2+ radial (R), 2+ radial (L), 2+ dorsalis pedis (R), 2+ dorsalis pedis (L) Gastrointestinal: normal bowel sounds, non tender, soft, non-distended, no gua rding, no rebound, other - Very mild suprapubic tenderness on palpation without rebound or guarding Rectal: deferred Genitourinary: normal inspection, no CVA tenderness Musculoskeletal: back normal, normal range of motion, gait/station normal, non- tender Neurologic: alert, motor strength/tone normal, oriented x3, sensory intact, responsive, speech normal Psychiatric: judgement/insight normal, memory normal, mood/affect normal, no suicidal/homicidal ideation Lymphatic: no adenopathy Medical Decision Making Diagnostic Impression: Primary Impression: UTI (urinary tract infection) ER Course 29-year-old female here with dysuria and urinary frequency. Patient was hemodynamically stable and neurovascular intact with normal vital signs in the emergency department. No evidence of sepsis. She had a largely normal physical examination including a lack of any CVA tenderness. No worry for pyelonephritis at this time. Urine test negative. Urinalysis showed evidence of infection. Cultures pending at this time. Review of patient's previous records show that she had an Enterococcus faecalis positive urine culture approximately 1 year ago that was pansensitive. Patient was given a prescription for Macrobid and told to follow-up with her primary care provider. Told to come back to the emergency department if she has any worsening dysuria, fevers, chills, back pain, malaise. She expressed understanding. Discharged in stable condition. Laboratory Tests Test 05/01/20 20:35 Urine Color Pale yellow Urine Appearance Slightly cloudy Urine pH 6 (4.5-8.0) Urine Specific [place] 1.020 (1.005-1.035) Urine Protein 1+ (NEGATIVE) H Urine Glucose (UA) Negative (NEGATIVE) Urine Ketones Negative (NEGATIVE) Urine Blood 2+ (NEGATIVE) H Urine Nitrite Negative (NEGATIVE) Urine Bilirubin Negative (NEGATIVE) Urine Urobilinogen Normal MG/DL (0.0-1.0) Urine Leukocyte Esterase 2+ (NEGATIVE) H Urine RBC Pending Urine WBC Pending Urine Squamous Epithelial Cells Pending Urine Bacteria Pending Urine HCG, Qualitative Negative (NEGATIVE) Last Vital Signs Date Time Temp Pulse Resp B/P (MAP) Pulse Ox O2 Delivery O2 Flow Rate FiO2 05/01/20 20:30 98.1 72 22 99/62 96 Room Air Scripts Nitrofurantoin Monohyd/M-Cryst* (MACROBID 100 MG*) 100 Mg Capsule 100 MG ORAL EVERY 12 HOURS for 7 Days, CAP Prov: Frandy Jones M.D. 05/01/20 Referrals: NON PHYSICIAN (PCP) Frandy Jones M.D. May 01, 2020 21:19
[2020-05-01] MEDS ORDERED: NITROFURANTOIN100 M2 ORAL (21:29)
[2020-05-01 21:45] VITALS: BP 102/68
--- NOTE | 2020-05-01 21:45 | NUR ---
ER DISCHARGE NOTE: Patient is cleared to be discharged per ERMD, pt is aox4, on room air, with stable vital signs. pt was given dc and prescription instructions, pt was able to verbalize understanding, pt id band removed. pt is able to ambulate with steady gait. pt took all belongings.
== END 2020-05-01 21:45 | disposition home or self-care (01) ==
LOC: EMR 20:45
DX: N39.0 Urinary tract infection, site not specified (principal); Z88.2 Allergy status to sulfonamides; G40.909 Epilepsy, unspecified, not intractable, without status epilepticus
CPT/HCPCS: 81003; 81025; 87086; Z7502; 99283

== ENCOUNTER 2020-07-10 10:42 | Emergency (ER) | payer BC, OTHER ==
[~2020-07-10] VITALS: Ht 172.7 cm; Wt 63.5 kg
[2020-07-10] MEDS ORDERED: HYDROcodone/Acetamin 5/325 tab ORAL ONE (11:00)
[2020-07-10] MEDS ORDERED: Ketorolac 30mg Inj IM ONE (11:00)
[2020-07-10 11:24] VITALS: BP 130/80
[2020-07-10] MEDS ORDERED: PERCOCET 5-3251 EACH ORAL (11:53)
[2020-07-10] MEDS ORDERED: COLACE100 MG ORAL (11:53)
[2020-07-10] MEDS ORDERED: IBUPROFEN600 M1 ORAL (11:53)
--- NOTE | 2020-07-10 11:57 | Emergency Room Report ---
History of Present Illness General Chief Complaint: Abdominal Pain Source: Patient Present Illness HPI Patient is a 29-year-old female presents to the ER complaining of ureteral pain. Patient states she had a lithotripsy done at [facility] yesterday. She states that when she left she had already been given some IV pain medications but has been having increasing urethral pain since yesterday. Patient has only been on Tylenol. She denies any fever or chills. She denies any nausea or vomiting. She denies any flank pain. Patient states that she is already on amoxicillin antibiotic given to her by her urologist. Patient states that she spoke with the covering urologist today who told her that she could go to [facility] or any other facility for pain control. Allergies: Coded Allergies: SULFA (SULFONAMIDE ANTIBIOTICS) (Verified Allergy, Unknown, 05/25/18) COVID-19 Screening Contact w/high risk pt: No Experienced COVID-19 symptoms?: No COVID-19 Testing performed GLASS BEAD MAKER: No Patient History Now: No Reviewed Nursing Documentation: PMH: Agreed; PSxH: Agreed Nursing Documentation-PMH Hx Hypertension: No - ORTHOSTATIC HYPOTENSION. Hx Pacemaker: No Hx Asthma: No Hx COPD: No Hx Diabetes: No Hx Dialysis: No Hx Cerebrovascular Accident: No Hx Seizures: Yes Review of Systems All Other Systems: negative except mentioned in HPI Physical Exam Vital Signs Date Time Temp Pulse Resp B/P (MAP) Pulse Ox O2 Delivery O2 Flow Rate FiO2 07/10/20 11:01 98.1 78 16 130/80 (97) 98 Room Air Sp02 EP Interpretation: reviewed, normal General Appearance: no apparent distress, alert, GCS 15, non-toxic Head: normocephalic, atraumatic Eyes: bilateral eye normal inspection, bilateral eye PERRL ENT: hearing grossly normal, normal pharynx, no angioedema, normal voice Neck: full range of motion, supple/symm/no masses Respiratory: chest non-tender, lungs clear, normal breath sounds, speaking full sentences Cardiovascular #1: regular rate, rhythm, no edema Gastrointestinal: normal bowel sounds, non tender, soft, non-distended, no guarding, no rebound Genitourinary: no CVA tenderness Musculoskeletal: normal range of motion Neurologic: intervention manager III-XII nml as tested, oriented x3 Psychiatric: no suicidal/homicidal ideation Skin: no rash Lymphatic: no adenopathy Medical Decision Making Diagnostic Impression: Primary Impression: Post-operative pain ER Course Patient already on antibiotics and Pyridium. Patient complaining of ureteral pain when urinating. Patient given IV Toradol as well as oral Percocet. On reevaluation she states that her pain is improved. She appears much more comfortable. Urine culture has been sent. Urinalysis would not be helpful as patient is already on antibiotics and just had her lithotripsy done yesterday. After discussing risks and benefits of further diagnostics, treatment plans, as well as indications for and risks of admission, the patient is agreeable to being discharged home. I have explained that their evaluation and treatment in the emergency department today is an important step towards them achieving better health but that their evaluation today is not intended to replace further evaluation and treatment by a physician in their local clinic. I have explained that while the current findings suggest no immediate life threatening emergency they will require further evaluation and treatment by a physician of their choice in their area. They understand that it will be necessary for them to review the final reports of their ED visit with their clinic physician. We have reviewed indications for return to the Emergency Department. I have explained that additional time may need to pass and/or additional testing as an outpatient may be necessary before a definitive diagnosis can be made. They tell me they are willing to follow up as instructed within the timeframe I recommend. They appear to understand what we discussed. Additionally they understand that if they are unable to be seen by an outpatient physician they are welcome, and in fact should, return to the Emergency Department for a repeat evaluation. The patient is stable at time of discharge. Last Vital Signs Date Time Temp Pulse Resp B/P (MAP) Pulse Ox O2 Delivery O2 Flow Rate FiO2 07/10/20 11:24 98.1 80 18 130/80 98 Room Air Disposition: HOME, SELF-CARE Condition: Stable Scripts Ibuprofen* (MOTRIN*) 600 Mg Tablet 600 MG ORAL Q6H PRN for For Pain, #30 TAB 0 Refills Prov: Dorene Rosas M.D. 07/10/20 Oxycodone/Acetaminophen 5-325* (PERCOCET 5-325 MG TABLET*) 1 Each Tablet 1 TAB ORAL Q6H PRN for For Pain, #12 TAB 0 Refills Prov: Dorene Rosas M.D. 07/10/20 Docusate Sodium* (COLACE*) 100 Mg Capsule 100 MG ORAL THREE TIMES A DAY for 14 Days, CAP Prov: Dorene Rosas M.D. 07/10/20 Referrals: [facility] Patient Instructions: Dysuria Additional Instructions: The patient was provided with discharge instructions, notified to follow-up with a primary care doctor and or specialist in the next 24-48 hours, and to return to the ED if they have worsening of their symptoms. Please note that this report is being documented using [employer]oSphere technology. This can lead to erroneous entry secondary to incorrect interpretation by the dictating instrument. Dorene Rosas M.D. Jul 10, 2020 11:57
[2020-07-10 12:11] VITALS: BP 130/80
== END 2020-07-10 12:10 | disposition home or self-care (01) ==
LOC: EMR 12:05
DX: G89.18 Other acute postprocedural pain (principal); G40.909 Epilepsy, unspecified, not intractable, without status epilepticus; Z88.2 Allergy status to sulfonamides
CPT/HCPCS: 87086; 96372; 99283; J1885